=== PATIENT | female | born 1975 | race Caucasian/White ===

== ENCOUNTER → 2017-08-07 | Outpatient (CLI) | payer OTHER | LOC: FIMAGING 12:53 | DX: Z12.31 Encounter for screening mammogram for malignant neoplasm of breast (principal) ==

== ENCOUNTER 2018-01-25 13:20 | Emergency (ER) | payer OTHER ==
--- NOTE | 2018-01-25 13:40 | CPEKG ---
Heart Rate: 66 RR Interval: 909 P-R Interval: 148 QRSD Interval: 94 QT Interval: 412 QTC Interval: 432 P [place]: 70 QRS [place]: 81 T Wave [place]: 70 EKG Severity - NORMAL ECG - EKG Impression: SINUS RHYTHM Electronically Signed By: Jenni Nieto 25-Jan-2018 15:02:55
[2018-01-25 13:52] LABS: PLATELET COUNT 230 10^3/uL (150-400)
--- NOTE | 2018-01-25 13:55 | EDPHY ---
HPI/HX/ROS/PE/MDM Narrative: CHIEF COMPLAINT: Chest pain HISTORY OF PRESENT ILLNESS: The patient is a 42 y/o female complaining of chest pain, onset last night. At 5:30 PM last night, she was driving in the car when abruptly she felt a pain in the left lower region of her chest, extending around the side into her back. The pain continued through the night and into this morning, when it extended into her left shoulder. The pain is worse with breathing and walking. She has an associated lack of appetite. She denies shortness of breath, nausea, vomiting, diarrhea, changes in bowel movement, urinary complaints, or any other associated symptoms. She is currently on her menstrual period. She denies clotting history, allergies, abdominal surgeries, or other relevant conditions. She denies recent illness. She travels at least weekly to [place], [place], and [place]. She denies any international travel in the last year. She denies recent trauma. No fever, chills, shortness of breath, palpitations, vomiting, diarrhea, urinary complaints, headache, lightheadedness. REVIEW OF SYSTEMS: Aside from elements discussed in the HPI, a comprehensive 10-point review of systems was reviewed and is negative. PAST MEDICAL HISTORY: Myomectomy several years ago SOCIAL HISTORY: Moved from [place] 2 years ago, with children, employed VITAL SIGNS: Reviewed by me GENERAL: Well-developed, well-nourished, resting comfortably in no respiratory distress. Pleasant. Thin. HEENT: Atraumatic. Eyes: No icterus, no injection. Mouth: moist mucous membranes. No erythema or lesions. Neck: supple with no adenopathy. LUNGS: No wheezes, rhonchi or rales. Breath sounds slightly diminished on right. CARDIAC: Regular rate and rhythm, no rubs, murmurs or gallops. Reproducible tenderness in the left posterior chest wall, under the left breast, and at the base of the left ribcage. ABDOMEN: Soft, very mild tenderness left upper quadrant. No guarding or rebound. No distension. No fluid wave. Spleen is not palpable. BACK: Reproducible tenderness in the left posterior chest wall. No CVA tenderness. EXTREMITIES: No trauma. No edema. Range of motion is normal throughout. NEURO: Alert and oriented, grossly nonfocal. SKIN: Warm and dry, no rash. PSYCHIATRIC: Normal mentation, no agitation. ED Course: 12-LEAD EKG: Please see the full report in [facility]. My interpretation: Normal sinus rhythm X-ray: Chest x-ray was obtained. I viewed the images myself on the PACS system. My interpretation of the images is: normal chest. The radiologist interpretation is negative for acute findings. I discussed the x-ray findings with the patient. CT: Abdominal CT was obtained. I viewed the images myself on the PACS system. My interpretation of the images is: normal abdomen. The radiologist interpretation is negative for acute findings. I discussed the findings with the patient. The patient presents with lower left sided chest pain. She denies any precipitating event. She reports it is worsen with breathing and walking. On exam, the pain is reproducible with palpation to the left posterior chest wall, under the left breast, and at the base of the left rib cage. Patient also has some mild left upper quadrant tenderness. EKG is normal. Plan for chest x-ray, CBC, basic metabolic panel, liver function , lipase, d-dimer, beta-HCG, and iSTAT troponin. 4:00 PM - Chest x-ray was normal. CT scan of the abdomen pelvis was also ordered given patient's continued left upper quadrant discomfort. CT was normal. Labs were not concerning. I feel she can be released with instructions to follow up with as an outpatient. She agrees to this course of action. Follow up instructions and return precautions given. Patient did not provide a urine sample emergency did want visit. She denies any urinary difficulties, blood in the urine, dysuria, frequency, hesitancy. MDM: After history and physical examination, the differential for chest pain was considered, including but not limited to, myocardial ischemia, acute coronary syndrome, pulmonary embolus, chest wall pain, pleural inflammation and pulmonary infectious causes. Patient also has left upper quadrant discomfort. Differential diagnosis included constipation, bowel obstruction, splenic injury , ascites, lower lobe pneumonia, pyelonephritis, urinary tract infection. - Data Points Imaging Results: Chest xray: Impression: No acute findings in the chest. Dictated By: Braeden Muniz MD CT Abd Pelvis Impression: 1. No significant abnormality seen within the abdomen and pelvis. 2. No CT evidence of appendicitis, abscess or bowel obstruction. Findings discussed with Jenni Nieto MD at 15:52 hour, 01/25/2018. Dictated By: Shon Mendoza MD Imaging: Discussed imaging studies w/ bingo caller Radiologist, I viewed and interpreted images myself Laboratory Results: Laboratory Results 01/25/18 13:45 01/25/18 13:45 Medications Given: Discontinued Medications Ketorolac Tromethamine (Toradol) 15 mg IVP EDNOW ONE Stop: 01/25/18 15:55 Last Admin: 01/25/18 16:22 Dose: 15 mg Point of Care Test Results: Chemistry 01/25/18 13:47 POC Troponin I 0.00 ng/mL ng/mL (0.00-0.08) General Time Seen by Provider: 01/25/18 13:34 Initial Vital Signs: Initial Vital Signs Temperature (C) 36.7 C 01/25/18 13:22 Heart Rate 82 01/25/18 13:22 Respiratory Rate 18 01/25/18 13:22 Blood Pressure 128/84 H 01/25/18 13:22 O2 Sat (%) 98 01/25/18 13:22 O2 Delivery Mode Room Air Allergies/Adverse Reactions: Penicillins Allergy (Verified 01/25/18 13:22) Home Medications: Medication Instructions Recorded NK [No Known Home Meds] 01/25/18 Departure - Departure Disposition: Home, Routine, Self-Care Clinical Impression: Chest wall pain, LUQ pain Chest pain Qualifiers: Chest pain type: other chest pain Qualified Code(s): R07.89 - Other chest pain ; R07.8 - Other chest pain Condition: Good Instructions: Pleurisy (ED), Chest Wall Pain (ED) Additional Instructions: No definitive cause of your chest pain and abdominal pain has been identified. There is no indication that this is cardiac, no indication of pneumonia, pleurisy, fluid in the chest, collapsed lung, or blood clot in the lungs. CT scan of your abdomen pelvis is also normal, with a normal-appearing spleen. Please consider taking ibuprofen 600 mg every 8 hr on a regular basis for the next several days to see if this helps with the pain. Please follow up with primary care physician as directed below for further testing and evaluation. Watch for the development of a rash. Seek care if you developed nausea, vomiting, worsening pain despite the above treatment, fevers, urinary complaints, or other concerns. Referrals: NONE *PRIMARY CARE P,. [Primary Care Provider] - As per Instructions Day Steve MD [Medical Doctor] - As per Instructions Report Scribed for: Jenni Nieto Report Scribed by: Anna Moss Date of Report: 01/25/18 Time of Report: 13:57 Physician Review and Approval Statement: Portions of this note were transcribed by a certified medical records coder. I personally performed a history, physical exam, medical decision making, and confirmed accuracy of information the transcribed note.
[2018-01-25] MEDS ORDERED: IOPAMIDOL (ISOVUE-300) 100 ML BTL ONE (15:02)
[2018-01-25] MEDS ORDERED: KETOROLAC 15 MG/1 ML SDV IVP ONE (15:54)
[2018-01-25 16:31] VITALS: BP 108/62
== END 2018-01-25 16:28 | disposition home or self-care (01) ==
DX: R07.9 Chest pain, unspecified (principal); R10.12 Left upper quadrant pain
CPT/HCPCS: 84484-PO; 96374; J1885; Q9967

== ENCOUNTER → 2018-09-04 | Outpatient (CLI) | payer OTHER | LOC: FIMAGING 12:52 | PROVIDERS: ATTEND Family Medicine | DX: Z12.31 Encounter for screening mammogram for malignant neoplasm of breast (principal) ==